=== PATIENT | male | born 1960 | race Caucasian/White ===

== ENCOUNTER → 2023-02-05 | Outpatient (CLI) | payer OTHER ==
[2023-02-05 12:44] LABS: PSA, %Free 30.5 %
== END | disposition home or self-care (01) ==
LOC: LAB 08:53 → LAB SHORT 08:53
PROVIDERS: Physician Assistant
DX: R97.20 Elevated prostate specific antigen [PSA] (principal)
CPT/HCPCS: 84153; 84154